=== PATIENT | female | born 1945 | race Caucasian/White ===

== ENCOUNTER 2019-05-06 17:45 | Emergency (ER) | payer MEDICARE, BC ==
--- NOTE | 2019-05-06 19:13 | EDM.PDOC ---
ED HPI GENERAL MEDICAL PROBLEM - General Chief Complaint: General Stated Complaint: fever Time Seen by Provider: 05/06/19 17:50 Source of Information: Reports: Patient History Limitations: Reports: No Limitations - History of Present Illness INITIAL COMMENTS - FREE TEXT/NARRATIVE: Patient is a 73-year-old who is seen today with complaint of possible increased temperature she had history of nephrolithiasis with lithotripsy yesterday. She has bilateral stents placed Onset: Gradual Duration: Hour(s):, Constant Location: Reports: Pelvis Quality: Reports: Ache Severity: Mild Improves with: Reports: None Worsens with: Reports: None Context: Reports: Other (Manipulation of kidney stone) Treatments [employer]: Reports: Acetaminophen bilat flank Pain Score (Numeric/FACES): 1 - Related Data Allergies Allergy/AdvReac Type Severity Reaction Status Date / Time propoxyphene [From Darvon] Allergy Hives Verified 05/06/19 17:49 Home Meds: Home Meds Acetaminophen [Tylenol Extra Strength] 1,000 mg PO Q6HR PRN 05/06/19 [History] Cephalexin [Keflex] 250 mg PO TID 05/06/19 [History] Docusate Sodium 100 mg PO BID PRN 05/06/19 [History] Raloxifene [Evista] 60 mg PO DAILY 05/06/19 [History] Sulfamethoxazole/Trimethoprim [Septra DS] 1 each PO BID 10 Days #20 tab [Rx] Past Medical History HEENT History: Reports: Impaired Vision, Other (See Below) Other HEENT History: wears reading glasses, 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 Gastrointestinal History: Reports: GERD Genitourinary History: Reports: Renal Calculus [employer]ER History: Reports: , Other (See Below) Other [employer]ANQUET BARTENDER History: tubal ligation - Past Surgical History GI Surgical History: Reports: Demian Fundoplication Female Surgical History: Reports: Lithotripsy/ESWL, Ureteral Stent Social & Family History - Tobacco Use Smoking Status *Q: Never Smoker Second Hand Smoke Exposure: No - Caffeine Use Caffeine Use: Reports: Coffee Other Caffeine Use: 1 cup a day - Recreational Drug Use Recreational Drug Use: No ED ROS GENERAL - Review of Systems Review Of Systems: See Below Constitutional: Reports: No Symptoms HEENT: Reports: No Symptoms Respiratory: Reports: No Symptoms Cardiovascular: Reports: No Symptoms Endocrine: Reports: No Symptoms GI/Abdominal: Reports: No Symptoms : Reports: No Symptoms Musculoskeletal: Reports: No Symptoms Skin: Reports: No Symptoms Neurological: Reports: No Symptoms Psychiatric: Reports: No Symptoms Hematologic/Lymphatic: Reports: No Symptoms Immunologic: Reports: No Symptoms ED EXAM, GENERAL - Physical Exam Exam: See Below Exam Limited By: No Limitations General Appearance: Alert, WD/WN, No Apparent Distress Ears: Normal External Exam, Normal Canal, Hearing Grossly Normal, Normal TMs Ear Exam: Bilateral Ear: Auricle Normal, Canal Normal, TM normal Nose: Normal Inspection, Normal Mucosa, No Blood Throat/Mouth: Normal Inspection, Normal Lips, Normal Teeth, Normal Gums, Normal Oropharynx, Normal Voice, No Airway Compromise Head: Atraumatic, Normocephalic Neck: Normal Inspection, Supple, Non-Tender, Full Range of Motion Respiratory/Chest: No Respiratory Distress, Lungs Clear, Normal Breath Sounds, No Accessory Muscle Use, Chest Non-Tender Cardiovascular: Normal Peripheral Pulses, Regular Rate, Rhythm, No Edema, No Gallop, No JVD, No Murmur, No Rub GI/Abdominal: Normal Bowel Sounds, Soft, Non-Tender, No Organomegaly, No Distention, No Abnormal Bruit, No Mass Back Exam: Normal Inspection, Full Range of Motion, NT Extremities: Normal Inspection, Normal Range of Motion, Non-Tender, Normal Capillary Refill, No Pedal Edema Neurological: Alert, Oriented, CN II-XII Intact, Normal Cognition, Normal Gait, Normal Reflexes, No Motor/Sensory Deficits Psychiatric: Normal Affect, Normal Mood Skin Exam: Warm, Dry, Intact, Normal Color, No Rash Course - Vital Signs Last Recorded V/S: Last Vital Signs Temp 99.3 F 05/06/19 18:26 Pulse 101 H 05/06/19 18:26 Resp 12 05/06/19 18:26 BP 131/51 L 05/06/19 18:26 Pulse Ox 96 05/06/19 18:26 - Orders/Labs/Meds Orders: Active Orders 24 hr Category Date Time Status Abdomen 2V AP Flat Upright [CR] Stat Exams 05/06/19 17:52 Ordered CULTURE URINE [RM] Stat Lab 05/06/19 19:04 Ordered Labs: Laboratory Tests 05/06/19 05/06/19 Range/Units 17:50 17:55 WBC 8.6 (4.0-10.2) K/uL RBC 3.54 L (3.77-5.09) M/uL Hgb 10.5 L (11.7-15.5) g/dL Hct 32.7 L (34.0-46.0) % MCV 92.4 (84.0-98.0) fL MCH 29.7 (28.2-33.3) pg MCHC 32.1 (31.7-36.0) g/dL RDW 14.5 H (11.2-14.1) % Plt Count 129 L (150-350) K/uL Neut % (Auto) 81.8 H (45.0-80.0) % Lymph % (Auto) 9.0 L (10.0-50.0) % Wheeler % (Auto) 8.1 (2.0-14.0) % Eos % (Auto) 1.1 (0.0-5.0) % Baso % (Auto) 0.0 (0.0-2.0) % Neut # (Auto) 7.00 (1.40-7.00) K/uL Lymph # (Auto) 0.77 (0.50-3.50) K/uL Wheeler # (Auto) 0.69 (0.00-1.00) K/uL Eos # (Auto) 0.09 (0.00-0.50) K/uL Baso # (Auto) 0.00 (0.00-0.20) K/uL Specimen Type Urinvoid Urine Color Yellow Urine Appearance Cloudy Urine pH 6.5 (5.0-9.0) Ur Specific [place] 1.010 (1.005-1.030) Urine Protein 100 H (NEGATIVE) mg/dL Urine Glucose (UA) Negative (NEGATIVE) mg/dL Urine Ketones Negative (NEGATIVE) mg/dL Urine Occult Blood Moderate H (NEGATIVE) Urine Nitrite Negative (NEGATIVE) Urine Bilirubin Negative (NEGATIVE) Urine Urobilinogen 0.2 (0.2-1.0) E.U./dL Ur Leukocyte Esterase Large H (NEGATIVE) Urine RBC 30-40 H /HPF Urine WBC 50-75 H /HPF Urine Bacteria Moderate H (NONE TO FEW) /HPF Departure - Departure Time of Disposition: 19:14 Disposition: Home, Self-Care 01 Condition: Good Clinical Impression: UTI (urinary tract infection) - Discharge Information *PRESCRIPTION DRUG MONITORING PROGRAM REVIEWED*: No *COPY OF PRESCRIPTION DRUG MONITORING REPORT IN PATIENT CRISS: No Instructions: Urine Culture and Sensitivity Testing, Urinary Tract Infection, Adult, [id number] Care Plan Goals: Patient seen will go ahead and started on Septra DS one tablet twice a day for her cultures to return and call her with the results to see we have to change antibiotics - My Orders Last 24 Hours: My Active Orders 05/06/19 17:52 Abdomen 2V AP Flat Upright [CR] Stat 05/06/19 19:04 CULTURE URINE [RM] Stat - Assessment/Plan Last 24 Hours: My Active Orders 05/06/19 17:52 Abdomen 2V AP Flat Upright [CR] Stat 05/06/19 19:04 CULTURE URINE [RM] Stat
== END 2019-05-06 19:40 | disposition home or self-care (01) ==
LOC: SUPCPDRO 17:45 → LL.ED 17:45
DX: N39.0 Urinary tract infection, site not specified (principal); Z88.5 Allergy status to narcotic agent
CPT/HCPCS: 36415; 81001; 85025; 87086; 99283-25